=== PATIENT | female | born 1985 | race Caucasian/White ===

== ENCOUNTER 2022-07-17 17:37 | Emergency (ER) | payer OTHER ==
[~2022-07-17] VITALS: Ht 167.6 cm; Wt 68.0 kg
[2022-07-17 17:57] VITALS: BP 117/71
--- NOTE | 2022-07-17 18:00 | NUR ---
Received pt 36 yrs female here for changing dressing on picc line rt upper arm no redness no swalling aound picc line look clean skin intact
--- NOTE | 2022-07-17 18:25 | NUR ---
Cindyine dressing change and done by GLYNN REDDY
--- NOTE | 2022-07-17 18:35 | NUR ---
PICC LINE DRESSING CHANGE DONE ASEPTICALLY. NO S/SX OF INFECTION ON PICC LINE SITE. PICC LINE PATENT AND INTACT.
--- NOTE | 2022-07-17 18:36 | NUR ---
Patient discharged to home in stable condition. Written and verbal after care instructions given. Patient verbalizes understanding of instruction.
== END 2022-07-17 18:38 | disposition home or self-care (01) ==
LOC: ER 17:37
DX: Z48.00 Encounter for change or removal of nonsurgical wound dressing (principal)